=== PATIENT | female | born 2000 | race Two or more races ===

== ENCOUNTER 2023-03-28 16:19 | Emergency (ER) | payer OTHER ==
[~2023-03-28] VITALS: Ht 162.6 cm; Wt 59.1 kg
[2023-03-28 16:24] VITALS: TEMP 97.3
[2023-03-28] MEDS ORDERED: CYCLOBENZAPRINE HCL 10 MG TABLET PO ONE (16:45)
[2023-03-28] MEDS ORDERED: LIDOCAINE 5% TRANSDERMAL PATCH TD ONE (16:45)
[2023-03-28] MEDS ORDERED: IBUPROFEN 600 MG TABLET PO ONE (16:45)
[2023-03-28 17:30] VITALS: BP 114/69; PULSE 68; RESP 15
[2023-03-28] MEDS ORDERED: LIDO700A15 TP (17:37)
[2023-03-28] MEDS ORDERED: IBUP-1492 PO (17:37)
[2023-03-28] MEDS ORDERED: CYCL-448 PO (17:37)
== END 2023-03-28 17:45 | disposition home or self-care (01) ==
LOC: EMS 16:21
DX: S46.912A Strain of unspecified muscle, fascia and tendon at shoulder and upper arm level, left arm, initial encounter (principal); X50.9XXA Other and unspecified overexertion or strenuous movements or postures, initial encounter; Y93.89 Activity, other specified; Y92.89 Other specified places as the place of occurrence of the external cause; Y99.0 Civilian activity done for income or pay
CPT/HCPCS: 99284; Z7502; Z7610